=== PATIENT | female | born 1970 | race Caucasian/White ===

== ENCOUNTER 2017-08-13 21:59 | Emergency (ER) | payer SELFPAY ==
[~2017-08-13] VITALS: Ht 167.6 cm; Wt 122.5 kg
[2017-08-13] MEDS ORDERED: HYDR-79 PO (22:38)
--- NOTE | 2017-08-13 22:41 | ED.ADGEN ---
Adult General Chief Complaint Chief Complaint " I was walking out back.. and my sidewalk tamiko slopes.. and I turned. ... and my Rt. knee did not..." HPI HPI Patient is a 47 year old female who presents with Rt. knee injury with a twisting like activity. Patient localizes pain in patellar and medial collateral ligament area. There is some mild edema as compared to left knee, anterior posterior draw nourished indicate that cruciate ligaments appear to be stable. There is some crepitation on range of motion. There is exacerbation of pain with flexion of knee. Patient able to do straight leg lift. Patient was ambulatory at time exam with mild guarding. Distal neurovascular intact. No previous injury. She works as [email or web address]. Review of Systems Review of Systems Constitutional: Denies fever or chills [] Eyes: Denies change in visual acuity, redness, or eye pain [] HENT: Denies nasal congestion or sore throat [] Respiratory: Denies cough or shortness of breath [] Cardiovascular: No additional information not addressed in HPI [] GI: Denies abdominal pain, nausea, vomiting, bloody stools or diarrhea [] : Denies dysuria or hematuria [] Musculoskeletal: Complaints are right knee pain Integument: Denies rash or skin lesions [] Neurologic: Denies headache, focal weakness or sensory changes [] Endocrine: Denies polyuria or polydipsia [] All other systems were reviewed and found to be within normal limits, except as documented in this note. Family History Family History Noncontributory Current Medications Current Medications Current Medications Medications (Trade) Dose Ordered Sig/Akash Start Time Stop Time Status Last Admin Dose Admin Ibuprofen (Motrin) 800 mg 1X ONCE 08/13/17 23:15 08/13/17 23:16 DC 08/13/17 23:18 800 MG See nursing for home meds Allergies Allergies Allergies Coded Allergies Type Severity Reaction Last Updated Verified No Known Drug Allergies 08/13/17 No Physical Exam Physical Exam Constitutional: Moderately acute distress, non-toxic appearance. [] HENT: Normocephalic, atraumatic, bilateral external ears normal, oropharynx moist, no oral exudates, nose normal. [] Eyes: PERRLA, EOMI, conjunctiva normal, no discharge. [] Neck: Normal range of motion, no tenderness, supple, no stridor. [] Cardiovascular:Heart rate regular rhythm, no murmur [] Lungs & Thorax: Bilateral breath sounds clear to auscultation [] Abdomen: Bowel sounds normal, soft, no tenderness, no masses, no pulsatile masses. Obese Skin: Warm, dry, no erythema, no rash. [] Back: No tenderness, no CVA tenderness. [] Extremities: Right knee tenderness, no cyanosis, no clubbing, ROM intact, right knee edema. Right knee exam as per history of present illness Neurologic: Alert and oriented X 3, normal motor function, normal sensory function, no focal deficits noted. [] Psychologic: Affect normal, judgement normal, mood normal. [] Current Patient Data Vital Signs Vital Signs Date Time Temp Pulse Resp B/P (MAP) Pulse Ox O2 Delivery O2 Flow Rate FiO2 08/13/17 23:35 86 16 145/94 (111) 97 Room Air 08/13/17 22:25 97.8 EKG EKG [] Radiology/Procedures Radiology/Procedures My interpretation of x-ray films shows degenerative joint changes but no obvious fracture or dislocation.[] Course & Med Decision Making Course & Med Decision Making Pertinent Labs and Imaging studies reviewed. (See chart for details) Ice, elevation, rest, Bryce wrap, and follow-up with primary care and orthopedics. May require a arthroscopic evaluation. The pain ma be tx with [id number] Tylenol and ibuprofen. For severe pain may take Vicoprofen. [] Final Impression Final Impression 1. Rt Knee injury 2. Degenerative joint changes 3. Collateral ligament strain[] Problems: Dragon Disclaimer Dragon Disclaimer This electronic medical record was generated, in whole or in part, using a voice recognition dictation system. RAYNA NEWBY MD Aug 13, 2017 22:41
[2017-08-13] MEDS ORDERED: IBUPROFEN 800 MG TABLET. PO ONE (23:15)
[2017-08-13 23:35] VITALS: BP 145/94
--- NOTE | 2017-08-14 07:58 | RAD ---
Right knee, 3 views, 08/13/2017: History: Fall, pain There is moderate marginal spurring medially at the knee joint and at the patellofemoral articulation. No acute fracture is identified. Several small periarticular calcifications are noted. No large joint effusion is seen. IMPRESSION: 1. Moderate degenerative change. 2. No acute bony abnormality is detected.
== END 2017-08-13 23:45 | disposition home or self-care (01) ==
LOC: ER 21:59
DX: S86.812A Strain of other muscle(s) and tendon(s) at lower leg level, left leg, initial encounter (principal); M17.11 Unilateral primary osteoarthritis, right knee; X58.XXXA Exposure to other specified factors, initial encounter; Y93.89 Activity, other specified; Y99.8 Other external cause status; Y92.89 Other specified places as the place of occurrence of the external cause
CPT/HCPCS: 73564; 99284

== ENCOUNTER 2017-09-23 15:31 | Emergency (ER) | payer SELFPAY ==
[~2017-09-23] VITALS: Ht 167.6 cm; Wt 117.9 kg
[~2017-09-23 15:31] MED LIST: HYDR-79 PO
[2017-09-23] MEDS ORDERED: DICL100G18 TP (16:38)
--- NOTE | 2017-09-23 16:38 | PHYS DOC ---
Past History Past Medical History: CAD, Other Past Surgical History: Cholecystectomy, Other Alcohol Use: Occasionally Drug Use: None Adult General Chief Complaint Chief Complaint: LOWER EXTREMITY SWELLING HPI HPI Patient is a 47 year old F who presents with right sided knee pain that started approximately week ago. She states that she "stepped wrong" and heard a pop. She develops swelling and pain thereafter. She states that is difficult to bend her knee. Bending her knee worsens pain. She has no difficulty straightening her knee. Her pain is mostly in the front of the knee. She has no other associated symptoms. She has no other exacerbating or relieving factors. Review of Systems Review of Systems Constitutional: Denies fever or chills [] Eyes: Denies change in visual acuity, redness, or eye pain [] HENT: Denies nasal congestion or sore throat [] Respiratory: Denies cough or shortness of breath [] Cardiovascular: No additional information not addressed in HPI [] GI: Denies abdominal pain, nausea, vomiting, bloody stools or diarrhea [] : Denies dysuria or hematuria [] Musculoskeletal: Denies back pain Integument: Denies rash or skin lesions [] Neurologic: Denies headache, focal weakness or sensory changes [] Endocrine: Denies polyuria or polydipsia [] All other systems were reviewed and found to be within normal limits, except as documented in this note. Family History Family History No pertinent family medical history was reported Current Medications Current Medications Current medications were reviewed Allergies Allergies Allergies Coded Allergies Type Severity Reaction Last Updated Verified No Known Drug Allergies 08/13/17 No Physical Exam Physical Exam Constitutional: Well developed, well nourished, no acute distress, non-toxic appearance. [] HENT: Normocephalic, atraumatic Eyes: EOMI, conjunctiva normal, no discharge. [] Neck: Normal range of motion, no tenderness, supple, no stridor. [] Cardiovascular:Heart rate regular rhythm, Lungs & Thorax: Bilateral breath sounds clear to auscultation [] Abdomen: Bowel sounds normal, soft, no tenderness, no masses, no pulsatile masses. [] Skin: Warm, dry, no erythema, no rash. [] Extremities: No tenderness, no cyanosis, no clubbing, ROM intact. Moderate anterior swelling was noted on the right knee. Minimal reduction in range of motion with flexion at the knee. No erythema or ecchymosis noted. Neurologic: Alert and oriented X 3, normal motor function, normal sensory function, no focal deficits noted. [] Psychologic: Affect normal, judgement normal, mood normal. [] Current Patient Data Vital Signs Normal vital signs. Please review nursing documentation for specifics EKG EKG [] Radiology/Procedures Radiology/Procedures [] Course & Med Decision Making Course & Med Decision Making Pertinent Labs and Imaging studies reviewed. (See chart for details) Imaging including ultrasound was declined. It was explained that child will be to look for a DVT. If it DVT was present it was explained that she could develop a life-threatening or permanently disabling condition if it was not managed. She expressed understanding and declined DUE TO COST. Dragon Disclaimer Dragon Disclaimer This electronic medical record was generated, in whole or in part, using a voice recognition dictation system. Departure Departure: Impression: Primary Impression: Right knee sprain Disposition: HOME, SELF-CARE Condition: STABLE Referrals: PCP,NO (PCP) Patient Instructions: Knee Sprain Additional Instructions: Genet was seen in the emergency department for knee pain. No emergency medical condition was found on history or physical exam. Her symptoms are most consistent with a knee sprain. She was started on Voltaren gel and advised to keep her leg elevated. She was encouraged to continue daily activity as tolerated. She was also encouraged to follow-up with her primary care doctor in the next 3-5 days for further management. Genet was encouraged to return to the emergency room if she develops new or worsening symptoms. Scripts Diclofenac Sodium (VOLTAREN) 100 Gm Gel..gram. 1 GM TP QID, #100 GM 2 Refills Prov: LALITO DAVIS MD 09/23/17 Problem Qualifiers Primary Impression: Right knee sprain Encounter type: initial encounter Involved ligament of knee: unspecified ligament Qualified Codes: S83.91XA - Sprain of unspecified site of right knee , initial encounter LALITO DAVIS MD Sep 23, 2017 16:38
[2017-09-23 16:43] VITALS: BP 156/103
== END 2017-09-23 16:50 | disposition home or self-care (01) ==
LOC: ER 15:31
DX: S83.91XA Sprain of unspecified site of right knee, initial encounter (principal); I25.10 Atherosclerotic heart disease of native coronary artery without angina pectoris; X50.9XXA Other and unspecified overexertion or strenuous movements or postures, initial encounter; Y93.89 Activity, other specified; Y99.8 Other external cause status; Y92.89 Other specified places as the place of occurrence of the external cause
CPT/HCPCS: 99283

== ENCOUNTER 2019-01-19 07:26 | Emergency (ER) | payer SELFPAY ==
[~2019-01-19] VITALS: Ht 167.6 cm; Wt 127.0 kg
[~2019-01-19 07:26] MED LIST changes: +DICL100G18 TP; +HYDR-1179 PO; -HYDR-79 PO
[2019-01-19] MEDS ORDERED: IV NORMAL SALINE 1,000ML 1,000 ML IV ONE (08:00)
--- NOTE | 2019-01-19 08:02 | PHYS DOC ---
Past History Past Medical History: Hypertension, Kidney Stones Past Surgical History: Cholecystectomy, Other Alcohol Use: Occasionally Drug Use: None Adult General Chief Complaint Chief Complaint: FLANK PAIN HPI HPI 48-year-old female who presents with right-sided flank pain. She has been having intermittent discomfort on the side for several days. The pain got much worse overnight last night. The patient works nights. She was just walking when the pain became sharp and severe. The sharpness only lasted a few minutes, but was replaced with a moderate aching sensation that has not subsided. Patient has a history of kidney stones in the past. She has noticed some intermittent blood in her urine over the last few days. She denies fever or chills. She denies dysuria or urinary frequency. She has been nauseous, but no vomiting. No rash or skin changes. She denies trauma or falls. Review of Systems Review of Systems Constitutional: Denies fever or chills [] Eyes: Denies change in visual acuity, redness, or eye pain [] HENT: Denies nasal congestion or sore throat [] Respiratory: Denies cough or shortness of breath [] Cardiovascular: No additional information not addressed in HPI [] GI: Denies abdominal pain, nausea, vomiting, bloody stools or diarrhea [] : Hematuria. Denies dysuria. [] Musculoskeletal: Right flank pain[] Integument: Denies rash or skin lesions [] Neurologic: Denies headache, focal weakness or sensory changes [] Endocrine: Denies polyuria or polydipsia [] All other systems were reviewed and found to be within normal limits, except as documented in this note. Current Medications Current Medications Current Medications Medications (Trade) Dose Ordered Sig/Akash Start Time Stop Time Status Last Admin Dose Admin Sodium Chloride 1,000 ml @ 1,000 mls/hr 1X ONCE 01/19/19 08:00 01/19/19 08:59 Allergies Allergies Allergies Coded Allergies Type Severity Reaction Last Updated Verified No Known Drug Allergies 08/13/17 No Physical Exam Physical Exam Constitutional: Well developed, well nourished, no acute distress, non-toxic appearance, uncomfortable. [] HENT: Normocephalic, atraumatic, bilateral external ears normal, oropharynx moist, no oral exudates, nose normal. [] Eyes: PERRLA, EOMI, conjunctiva normal, no discharge. [] Neck: Normal range of motion, no tenderness, supple, no stridor. [] Cardiovascular:Heart rate regular rhythm, no murmur [] Lungs & Thorax: Bilateral breath sounds clear to auscultation [] Abdomen: Bowel sounds normal, soft, no tenderness, no masses, no pulsatile masses. [] Skin: Warm, dry, no erythema, no rash. [] Back: No tenderness. Right-sided CVA tenderness. [] Extremities: No tenderness, no cyanosis, no clubbing, ROM intact, no edema. [] Neurologic: Alert and oriented X 3, normal motor function, normal sensory function, no focal deficits noted. [] Psychologic: Affect normal, judgement normal, mood normal. [] Current Patient Data Vital Signs Vital Signs Date Time Temp Pulse Resp B/P (MAP) Pulse Ox O2 Delivery O2 Flow Rate FiO2 01/19/19 07:39 97.7 88 22 99 Room Air EKG EKG [] Radiology/Procedures Radiology/Procedures [] Impressions: PQRS Compliance Statement: One or more of the following individualized dose reduction techniques were utilized for this examination: 1. Automated exposure control 2. Adjustment of the mA and/or kV according to patient size 3. Use of iterative reconstruction technique CT abdomen/pelvis without contrast 01/19/2019 8:09 AM INDICATION: Right flank pain for one and half weeks. Recent history of kidney stones. COMPARISON: None available TECHNIQUE: Multiple axial CT images of the abdomen and pelvis were obtained without intravenous contrast. Coronal and sagittal reformats are provided. FINDINGS: Lungs are clear. Heart size is within normal limits. Evaluation of solid abdominal viscera is limited by lack of intravenous contrast. Liver, spleen, bilateral adrenal glands and pancreas are normal in appearance. Gallbladder surgically absent. Abdominal aorta is normal in course and caliber. No pathologically enlarged lymph nodes are identified in abdomen and pelvis. There is no free fluid or free intraperitoneal air. There is mild colonic diverticulosis. No adjacent inflammatory changes are identified. Moderate amount of stool is noted throughout the colon. There is a umbilical hernia measuring 1.8 cm containing nondilated loop of transverse colon. There is an additional supraumbilical ventral hernia containing fat measuring 2.7 cm. Few nonenlarged lymph nodes are identified in the right lower quadrant measuring up to 6 mm by short axis. Definite appendix is not visualized. No pericecal inflammatory changes are identified. 3 mm nonobstructing calculus is identified in the inferior pole the left kidney. 2 mm nonobstructing calculus is identified in the inferior pole left kidney. 5 mm nonobstructing calculus is identified in the interpolar right kidney. There is no hydronephrosis. No calculi are identified in the ureters or urinary bladder. Urinary bladder is within normal limits given degree of distention. Coarse calcification is identified along the midline adjacent to the urethra which is of indeterminate etiology. No suspicious osseous abnormality is identified. There is minimal retrolisthesis of L2 on L3, L3 on L4 and L4 on L5. Follicular changes are identified in the right adnexa. IMPRESSION: Nephrolithiasis without evidence for obstructive uropathy. Appendix is not visualized. No pericecal inflammatory changes are identified. Electronically signed by: Tio Reece MD (01/19/2019 8:37 AM) [id number] DICTATED AND SIGNED BY: TIO REECE MD DATE: 01/19/19 0837 CC: SHAWN CRANDALL DO; PCP,NO ~ Course & Med Decision Making Course & Med Decision Making Pertinent Labs and Imaging studies reviewed. (See chart for details) The patient's labs are unremarkable. Her urinalysis does show moderate blood, but no infection. CT scan is negative for shortness of kidney stone. She does have some stones in the kidneys, but nothing within the ureters or bladder. There is a calcification near the urethra that is of uncertain etiology. See official report for details. I suspect the patient has recently passed a stone. She is stable for discharge at this time. [] Dragon Disclaimer Dragon Disclaimer This electronic medical record was generated, in whole or in part, using a voice recognition dictation system. Departure Departure: Impression: Primary Impression: Kidney stone on left side Additional Impressions: Kidney stone on right side Hematuria Disposition: 01 HOME, SELF-CARE Condition: STABLE Referrals: PCP,NO (PCP) Patient Instructions: Hematuria, Adult, Kidney Stones, [id number] Problem Qualifiers Additional Impressions: Hematuria Hematuria type: unspecified type Qualified Codes: R31.9 - Hematuria, unspecified SHAWN CRANDALL DO Jan 19, 2019 08:02
[2019-01-19 08:26] LABS: BASO # 0.1 x10^3/uL (0.0-0.2); BASO % 1 % (0-3); EOS # 0.2 x10^3/uL (0.0-0.7); EOS % 3 % (0-3); HEMATOCRIT 41.9 % (36.0-47.0); HEMOGLOBIN 13.5 g/dL (12.0-15.5); LYMPH # 2.1 x10^3/uL (1.0-4.8); LYMPH % 30 % (24-48); MEAN CORPUSCULAR HEMOGLOBIN 29 pg (25-35); MEAN CORPUSCULAR HGB CONC 32 g/dL (31-37); MEAN CORPUSCULAR VOLUME 92 fL (79-100); MONO # 0.5 x10^3/uL (0.0-1.1); MONO % 8 % (0-9); NEUT % 58 % (31-73); PLATELET COUNT 256 x10^3/uL (140-400); RED BLOOD COUNT 4.58 x10^6/uL (3.50-5.40); WHITE BLOOD COUNT 6.9 x10^3/uL (4.0-11.0)
[2019-01-19] MEDS ORDERED: KETOROLAC 30 MG/ML VIAL. IV ONE (08:30)
[2019-01-19] MEDS ORDERED: ONDANSETRON PF 4 MG/2 ML VIAL. IV ONE (08:30)
[2019-01-19 08:32] LABS: ALBUMIN 3.8 g/dL (3.4-5.0); ALBUMIN/GLOBULIN RATIO 1.1 (1.0-1.7); CALCIUM 9.1 mg/dL (8.5-10.1); CREATININE 0.6 mg/dL (0.6-1.0); GFR 106.3; TOTAL BILIRUBIN 0.6 mg/dL (0.2-1.0)
[2019-01-19 08:34] LABS: BILIRUBIN,URINE NEG (NEG); CLARITY,URINE HAZY; COLOR,URINE STRAW; GLUCOSE,URINE NEG (NEG)
[2019-01-19 08:34] LABS: TOTAL PROTEIN 7.4 g/dL (6.4-8.2)
[2019-01-19 08:35] LABS: BACTERIA,URINE FEW /HPF (0-FEW); NITRITE,URINE NEG (NEG); SQUAMOUS EPITHELIAL CELL,UR OCC /LPF; UROBILINOGEN,URINE 0.2 mg/dL (0.2 mg/dL)
--- NOTE | 2019-01-19 08:40 | RAD ---
PQRS Compliance Statement: One or more of the following individualized dose reduction techniques were utilized for this examination: 1. Automated exposure control 2. Adjustment of the mA and/or kV according to patient size 3. Use of iterative reconstruction technique CT abdomen/pelvis without contrast 01/19/2019 8:09 AM INDICATION: Right flank pain for one and half weeks. Recent history of kidney stones. COMPARISON: None available TECHNIQUE: Multiple axial CT images of the abdomen and pelvis were obtained without intravenous contrast. Coronal and sagittal reformats are provided. FINDINGS: Lungs are clear. Heart size is within normal limits. Evaluation of solid abdominal viscera is limited by lack of intravenous contrast. Liver, spleen, bilateral adrenal glands and pancreas are normal in appearance. Gallbladder surgically absent. Abdominal aorta is normal in course and caliber. No pathologically enlarged lymph nodes are identified in abdomen and pelvis. There is no free fluid or free intraperitoneal air. There is mild colonic diverticulosis. No adjacent inflammatory changes are identified. Moderate amount of stool is noted throughout the colon. There is a umbilical hernia measuring 1.8 cm containing nondilated loop of transverse colon. There is an additional supraumbilical ventral hernia containing fat measuring 2.7 cm. Few nonenlarged lymph nodes are identified in the right lower quadrant measuring up to 6 mm by short axis. Definite appendix is not visualized. No pericecal inflammatory changes are identified. 3 mm nonobstructing calculus is identified in the inferior pole the left kidney. 2 mm nonobstructing calculus is identified in the inferior pole left kidney. 5 mm nonobstructing calculus is identified in the interpolar right kidney. There is no hydronephrosis. No calculi are identified in the ureters or urinary bladder. Urinary bladder is within normal limits given degree of distention. Coarse calcification is identified along the midline adjacent to the urethra which is of indeterminate etiology. No suspicious osseous abnormality is identified. There is minimal retrolisthesis of L2 on L3, L3 on L4 and L4 on L5. Follicular changes are identified in the right adnexa. IMPRESSION: Nephrolithiasis without evidence for obstructive uropathy. Appendix is not visualized. No pericecal inflammatory changes are identified. Electronically signed by: Nasrin Reece MD (01/19/2019 8:37 AM) [id number]
[2019-01-19] MEDS ORDERED: HYDR-3165 PO (09:18)
[2019-01-19] MEDS ORDERED: HYDROcodone/APAP 5/325MG 1 TAB TABLET PO ONE (09:40)
[2019-01-19 10:45] VITALS: BP 132/84
== END 2019-01-19 10:47 | disposition home or self-care (01) ==
LOC: ER 07:26
DX: N20.0 Calculus of kidney (principal); R31.9 Hematuria, unspecified; I10 Essential (primary) hypertension; Z87.442 Personal history of urinary calculi; Z90.49 Acquired absence of other specified parts of digestive tract
CPT/HCPCS: 36415; 74176; 80053; 81001; 85025; 87086; 96374; 96375; 99285; J1885; J2405; J7030

== ENCOUNTER 2020-07-16 12:43 | Emergency (ER) | payer SELFPAY ==
[~2020-07-16] VITALS: Ht 165.1 cm; Wt 133.0 kg
[~2020-07-16 12:43] MED LIST changes: +HYDR-3165 PO
--- NOTE | 2020-07-16 13:03 | EKG ---
[address] [address] Test Date: 2020-07-16 Test Time: 12:50:18 Pat Name: LISA ACKERMAN Department: Room: Gender: F Lighting Specialist: RAVINDRA : 1970 Requested By: ALINE GRIMES Order Number: [id number] Reading MD: Measurements Intervals [place] Rate: 76 P: 36 AL: 148 QRS: 33 QRSD: 94 T: 29 QT: 382 QTc: 429 Interpretive Statements SINUS RHYTHM R-S TRANSITION ZONE IN V LEADS DISPLACED TO THE LEFT LOW LIMB LEAD VOLTAGE NO SPECIFIC ECG ABNORMALITIES RI6.02 No previous ECG available for comparison
[2020-07-16] MEDS ORDERED: ASPIRIN CHEWABLE 81 MG TABLET. PO ONE (13:15)
--- NOTE | 2020-07-16 13:17 | PHYS DOC ---
Past History Past Medical History: Hypertension, Other Additional Past Medical Histor: SVT (ALINE GRIMES APRN) Past Surgical History: Cholecystectomy, Hysterectomy, Other Additional Past Surgical Histo: LITHROTRIPSY, HEART ABLATION, THRYOIDECTOMY (ALINE GRIMES APRN) Alcohol Use: Rarely Drug Use: None (ALINE GRIMES APRN) Adult General Chief Complaint Chief Complaint: CHEST PAIN HPI HPI Patient is a 50-year-old female who presents with chest tightness that is sharp, and comes and goes since . Patient states she was sitting at her desk working on her computer when the chest tightness started today. Patient also reports a headache "I was afraid my blood pressure was really high". Patient denies nausea, vomiting. Patient does report intermittent shortness of breath that she had Covid 3 months ago. Patient denies recent illness, cough, fever. Patient has history of hypertension, SVT. Patient denies pain at this time. (ALINE GRIMES APRN) Review of Systems Review of Systems Constitutional: Denies fever or chills [] Eyes: Denies change in visual acuity, redness, or eye pain [] HENT: Denies nasal congestion or sore throat [] Respiratory: Denies cough, reports intermittent shortness of breath since she was diagnosed with Covid 3 months ago Cardiovascular: Reports chest pressure GI: Denies abdominal pain, nausea, vomiting, bloody stools or diarrhea [] : Denies dysuria or hematuria [] Musculoskeletal: Denies back pain or joint pain [] Integument: Denies rash or skin lesions [] Neurologic: Denies headache, focal weakness or sensory changes [] Endocrine: Denies polyuria or polydipsia [] All other systems were reviewed and found to be within normal limits, except as documented in this note. (ALINE GRIMES APRN) Current Medications Current Medications Current Medications Medications (Trade) Dose Ordered Sig/Akash Start Time Stop Time Status Last Admin Dose Admin Aspirin (Aspirin Chewable) 162 mg 1X ONCE 07/16/20 13:15 07/16/20 13:16 (ALINE GRIMES APRN) Allergies Allergies Allergies Coded Allergies Type Severity Reaction Last Updated Verified No Known Drug Allergies 08/13/17 No (ALINE GRIMES APRN) Physical Exam Physical Exam Constitutional: Well developed, well nourished, no acute distress, non-toxic appearance. [] HENT: Normocephalic, atraumatic, bilateral external ears normal, oropharynx moist, no oral exudates, nose normal. [] Eyes: PERRLA, EOMI, conjunctiva normal, no discharge. [] Neck: Normal range of motion, no tenderness, supple, no stridor. [] Cardiovascular:Heart rate regular rhythm, no murmur [] Lungs & Thorax: Bilateral breath sounds clear to auscultation [] Abdomen: Bowel sounds normal, soft, no tenderness, no masses, no pulsatile masses. [] Skin: Warm, dry, no erythema, no rash. [] Back: No tenderness, no CVA tenderness. [] Extremities: No tenderness, no cyanosis, no clubbing, ROM intact, no edema. [] Neurologic: Alert and oriented X 3, normal motor function, normal sensory function, no focal deficits noted. [] Psychologic: Affect normal, judgement normal, mood normal. [] (ALINE GRIMES APRN) Current Patient Data Vital Signs Vital Signs Date Time Temp Pulse Resp B/P (MAP) Pulse Ox O2 Delivery O2 Flow Rate FiO2 07/16/20 12:53 97.0 79 18 160/93 (115) 96 Room Air (ALINE GRIMES APRN) EKG EKG Sinus Rhythm, HR 76 BPM[] (ALINE GRIMES APRN) Radiology/Procedures Radiology/Procedures []EXAM: CHEST 1 VIEW History: Chest pain COMPARISON: None available. TECHNIQUE: Single portable radiograph of the chest FINDINGS: The cardiac silhouette is unremarkable. The lungs are clear bilaterally. The costophrenic sulci are clear and well demarcated. IMPRESSION: No radiographic evidence of an acute cardiopulmonary process. Electronically signed by: Zoran Morris MD (07/16/2020 1:17 PM) [id number] (ALINE GRIMES APRN) Heart Score HEART Score for Chest Pain: HEART Score for Chest Pain Response (Comments) Value History Moderately Suspicious 1 ECG Normal 0 Age >45 - < 65 1 Risk Factors 1 or 2 Risk Factors 1 Troponin < Normal Limit 0 Total 3 Risk Factors: Risk Factors: DM, Current or recent (<one month) smoker, HTN, HLP, family history of CAD, obesity. Risk Scores: Risk Factors: DM, Current or recent (<one month) smoker, HTN, HLP, family history of CAD, obesity. (ALINE GRIMES APRN) Course & Med Decision Making Course & Med Decision Making Pertinent Labs and Imaging studies reviewed. (See chart for details) [] All labs within normal limits. Troponins negative. Heart score of 3. Patient has a history of hypertension, SVT, hypothyroid. Patient denies history of smoking. Patient was positive for Covid 3 months ago and since then has had intermittent shortness of breath, which she sees her primary care physician for. Chest x-ray was negative for any abnormalities. EKG normal sinus rhythm. Patient is hemodynamically stable and able to ambulate on her own upon discharge. She denies pain at this time. Will discharge patient to home. Patient agrees with this plan and will follow-up with primary care for further evaluation. (ALINE GRIMES APRN) Course & Med Decision Making I oversaw care of patient while in ER. I discussed case with TUNNEL ELASTIC OPERATOR CHAINSTITCH and agree to note, plan of care and dispo as stated (AYAKA PRADHAN DO) Dragon Disclaimer Dragon Disclaimer This electronic medical record was generated, in whole or in part, using a voice recognition dictation system. (ALINE GRIMES APRN) Departure Departure: Impression: Primary Impression: Chest pain Disposition: 01 DC HOME SELF CARE/HOMELESS Condition: STABLE Referrals: SHANT BLANCO JR, MD (PCP) Patient Instructions: Chest Pain (Nonspecific), [id number] Additional Instructions: He was seen in the emergency room today for chest pressure. All your labs came back within normal limits. Please follow-up with your primary care physician for further care. Please return to the emergency room with worsening symptoms or concerns. EMERGENCY DEPARTMENT GENERAL DISCHARGE INSTRUCTIONS Thank you for coming to [facility] (ED) today and trusting us with you care. We trust that you had a positivie experience in our Emergency Department. If you wish to speak to the department management, you may call the director at [phone]. YOUR FOLLOW UP INSTRUCTIONS ARE FOLLOWS: 1. Do you have a private Doctor? If you do not have a private doctor, please ask for a resource list of physicians or clinics that may be able to assist you with follow up care. 2. The Emergency Physician has interpreted your x-rays. The X-Ray specialist will also review them. If there is a change in the findings, you will be notified in 48 hours when at all possible. 3. A lab test or culture has been done, your results will be reviewed and you will be notified if you need a change in treatment. ADDITIONAL INSTRUCTIONS AND INFORMATION: 1. Your care today has been supervised by a physician who is specially trained in emergency care. Many problems require more than one evaluation for a complete diagnosis and treatment. We recommend that you schedule your follow up appointment as recommended to ensure complete treatment of you illness or injury. If you are unable to obtain follow up care and continue to have a problem, or if your condition worsens, we recommend that you return to the ED. 2. We are not able to safely determine your condition over the phone nor are we able to give sound medical advice over the phone. For these safety reasons, if you call for medical advice we will ask you to come to the ED for further evaluation. 3. If you have any questions regarding these discharge instructions please call the ED at [phone]. SAFETY INFORMATION: In the interest of safety, wellness, and injury prevention; we encourage you to wear your sealbelt, if you smoke; quite smoking, and we encourage family to use a protective helmet for bicycling and other sporting events that present an increased risk for head injury. IF YOUR SYMPTOMS WORSEN OR NEW SYMPTOMS DEVELOP, OR YOU HAVE CONCERNS ABOUT YOUR CONDITION; OR IF YOUR CONDITION WORSENS WHILE YOU ARE WAITING FOR YOUR FOLLOW UP APPOINTMENT; EITHER CONTACT YOUR PRIMARY CARE DOCTOR, THE PHYSICIAN WHOSE NAME AND NUMBER YOU WERE GIVEN, OR RETURN TO THE ED IMMEDIATELY. Problem Qualifiers Primary Impression: Chest pain Chest pain type: unspecified Qualified Codes: R07.9 - Chest pain, unspecified ALINE GRIMES APRN Jul 16, 2020 13:17 AYAKA PRADHAN DO Jul 17, 2020 15:09
[2020-07-16 13:46] LABS: ANION GAP 8 (6-14); BLOOD UREA NITROGEN 20 mg/dL (7-20); BUN/CREATININE RATIO 18 (6-20); CALCIUM 8.3 mg/dL (8.5-10.1); CARBON DIOXIDE 29 mmol/L (21-32); CHLORIDE 103 mmol/L (98-107); CREATININE 1.1 mg/dL (0.6-1.0); GFR 52.4; GLUCOSE 83 mg/dL (70-99); POTASSIUM 4.5 mmol/L (3.5-5.1); SODIUM 140 mmol/L (136-145)
[2020-07-16 13:49] LABS: BASO # 0.1 x10^3/uL (0.0-0.2); BASO % 1 % (0-3); EOS # 0.1 x10^3/uL (0.0-0.7); EOS % 2 % (0-3); HEMATOCRIT 42.6 % (36.0-47.0); HEMOGLOBIN 13.9 g/dL (12.0-15.5); LYMPH # 2.2 x10^3/uL (1.0-4.8); LYMPH % 35 % (24-48); MEAN CORPUSCULAR HEMOGLOBIN 29 pg (25-35); MEAN CORPUSCULAR HGB CONC 33 g/dL (31-37); MEAN CORPUSCULAR VOLUME 90 fL (79-100); MONO # 0.6 x10^3/uL (0.0-1.1); MONO % 10 % (0-9); NEUT # 3.2 x10^3uL (1.8-7.7); NEUT % 52 % (31-73); PLATELET COUNT 244 x10^3/uL (140-400); RED BLOOD COUNT 4.75 x10^6/uL (3.50-5.40); RED CELL DISTRIBUTION WIDTH 14.5 % (11.5-14.5); WHITE BLOOD COUNT 6.2 x10^3/uL (4.0-11.0)
[2020-07-16 14:01] LABS: ALBUMIN 3.6 g/dL (3.4-5.0); ALK PHOS 85 U/L (46-116); ALT (SGPT) 19 U/L (14-59); AST (SGOT) 16 U/L (15-37); TOTAL BILIRUBIN 0.4 mg/dL (0.2-1.0); TOTAL PROTEIN 7.3 g/dL (6.4-8.2)
[2020-07-16 14:10] LABS: CLARITY,URINE HAZY; COLOR,URINE YELLOW
[2020-07-16 14:11] LABS: BILIRUBIN,URINE NEG (NEG); GLUCOSE,URINE NEG (NEG); NITRITE,URINE NEG (NEG); RBC,URINE >40 /HPF (0-2); UROBILINOGEN,URINE 0.2 mg/dL (0.2 mg/dL)
[2020-07-16 14:12] LABS: BACTERIA,URINE MOD /HPF (0-FEW); SQUAMOUS EPITHELIAL CELL,UR MOD /LPF
[2020-07-16 14:16] VITALS: BP 128/78
== END 2020-07-16 14:27 | disposition home or self-care (01) ==
LOC: ER 12:43
DX: R07.89 Other chest pain (principal); R06.02 Shortness of breath; I10 Essential (primary) hypertension; Z90.49 Acquired absence of other specified parts of digestive tract; Z90.710 Acquired absence of both cervix and uterus; Z98.890 Other specified postprocedural states; Z90.89 Acquired absence of other organs
CPT/HCPCS: 36415; 71045; 80053; 81001; 82553; 83880; 84484; 85025; 85379; 87086; 93005; 99285

== ENCOUNTER 2021-07-04 21:39 | Emergency (ER) | payer OTHER ==
[~2021-07-04] VITALS: Ht 165.1 cm; Wt 144.3 kg
[2021-07-04 21:45] VITALS: BP 152/108
--- NOTE | 2021-07-04 21:55 | PHYS DOC ---
Past History Past Medical History: Hypertension, Other Additional Past Medical Histor: SVT Past Surgical History: Cholecystectomy, Hysterectomy, Other Additional Past Surgical Histo: LITHROTRIPSY, HEART ABLATION, THRYOIDECTOMY Alcohol Use: Rarely Drug Use: None Adult General HPI HPI Patient is a 51-year-old female with a history of renal stones presents with flank pain Review of Systems Review of Systems Constitutional: Denies fever or chills [] Eyes: Denies change in visual acuity, redness, or eye pain [] HENT: Denies nasal congestion or sore throat [] Respiratory: Denies cough or shortness of breath [] Cardiovascular: No additional information not addressed in HPI [] GI: Denies abdominal pain, nausea, vomiting, bloody stools or diarrhea [] : Denies dysuria or hematuria [] Musculoskeletal: Denies back pain or joint pain [] Integument: Denies rash or skin lesions [] Neurologic: Denies headache, focal weakness or sensory changes [] Endocrine: Denies polyuria or polydipsia [] All other systems were reviewed and found to be within normal limits, except as documented in this note. Allergies Allergies Allergies Coded Allergies Type Severity Reaction Last Updated Verified No Known Drug Allergies 08/13/17 No Physical Exam Physical Exam Constitutional: Well developed, well nourished, no acute distress, non-toxic appearance. [] HENT: Normocephalic, atraumatic, Eyes: conjunctiva normal, no discharge. [] Neck: Normal range of motion, no tenderness, supple, no stridor. [] Cardiovascular:Heart rate regular rhythm, no murmur [] Lungs & Thorax: Bilateral breath sounds clear to auscultation [] Abdomen: soft, no tenderness, no masses, no pulsatile masses. [] Skin: Warm, dry, no erythema, no rash. [] Back: No tenderness, no CVA tenderness. [] Extremities: No tenderness, no cyanosis, no clubbing, ROM intact, no edema. [] Neurologic: Alert and oriented X 3, no focal deficits noted. [] Psychologic: Affect normal, judgement normal, mood normal. [] EKG EKG [] Radiology/Procedures Radiology/Procedures [] Heart Score C/O Chest Pain: No Risk Factors: Risk Factors: DM, Current or recent (<one month) smoker, HTN, HLP, family history of CAD, obesity. Risk Scores: Risk Factors: DM, Current or recent (<one month) smoker, HTN, HLP, family history of CAD, obesity. Course & Med Decision Making Course & Med Decision Making Patient is a 51-year-old with a history of renal stones who presents with flank pain Vital signs notable for hypertension. Physical exam noted above. Given nausea medicine and pain medicine. Urinalysis not concerning. CT with no acute findings. There are 2 3 mm nonobstructing left renal calculi. Discussed all findings with patient. Advised on symptom control at home. Advised on diet. Advised to follow-up in 1 with primary care physician. Gave return precautions to the ED. Patient grateful, verbalized understanding and agreed with plan of discharge. Dragon Disclaimer Dragon Disclaimer This electronic medical record was generated, in whole or in part, using a voice recognition dictation system. Departure Departure: Impression: Primary Impression: Renal lithiasis Disposition: HOME / SELF CARE / HOMELESS Condition: GOOD Referrals: SHANT BLANCO JR, MD (PCP) Patient Instructions: Diet for Kidney Stones, Kidney Stones Additional Instructions: Thank you for coming into the emergency department tonight and allowing us to take care of you. Please read the attached information carefully. Please take your prescription medications as prescribed, taking 1 every 8 hours as needed for pain and 1 every 8 hours of your nausea medicine. Please follow-up with your primary care physician in the morning to update on ED visit. Please come back with new or concerning symptoms as we discussed. CAMDEN VOGEL MD Jul 04, 2021 21:55
--- NOTE | 2021-07-04 22:26 | RAD ---
PQRS Compliance Statement: One or more of the following individualized dose reduction techniques were utilized for this examinat ion: 1. Automated exposure control 2. Adjustment of the mA and/or kV according to patient size 3. Use of iterative reconstruction technique CT ABDOMEN+PELVIS WO Clinical Indication: Reason: flank pain, H/O stones / Spl. Instructions: / History: Comparison: None CT abdomen and pelvis without contrast January 19, 2019. Technique: Helical CT imaging of the abdomen and pelvis is performed without IV or oral contrast. Findings: Lung bases essentially clear. Cardiac size normal. Cholecystectomy. The liver, spleen, pancreas, adrenal glands, and abdominal aorta are normal. There is no right hydronephrosis. There are 2 about 3 mm in size nonobstructing left renal calculi. T here is no left hydronephrosis. There is no ureteral calculus. The stomach is unremarkable. There is diastasis of rectus abdominis muscles with protrusion of fat an d transverse colon. No small bowel obstruction is identified. There are scattered colon diverticula. No acute inflammation. No colon wall thickening is seen. The appendix is normal. No abdominal adenopa thy or free fluid. The urinary bladder is completely decompressed. There is a small bubble of air in the urinary bladder . Correlate to whether there has been recent catheterization. Probable hysterectomy. Ovaries are arsh lar in size. No pelvic free fluid. Mild grade 1 retrolisthesis of L2 on L3 and L3 on L4 and L4 and L5. IMPRESSION: 1. No acute abdominal or pelvic abnormality. No obstructive uropathy. 2. Nonobstructing left renal calculi. 3. Urinary bladder is completely decompressed and contains a small bubble of air. Correlate to [facility] there has been recent catheterization. Electronically signed by: Jared Bhatt MD (07/04/2021 10:23 PM) [facility]
[2021-07-04] MEDS ORDERED: ONDANSETRON ODT 4 MG TAB.RAPDIS PO ONE (22:45)
[2021-07-04 23:07] LABS: BILIRUBIN,URINE NEG (NEG); CLARITY,URINE CLEAR; COLOR,URINE YELLOW; GLUCOSE,URINE NEG (NEG); NITRITE,URINE NEG (NEG); UROBILINOGEN,URINE 0.2 mg/dL (0.2 mg/dL)
[2021-07-04 23:08] LABS: BACTERIA,URINE FEW /HPF (0-FEW); SQUAMOUS EPITHELIAL CELL,UR FEW /LPF
[2021-07-04] MEDS ORDERED: ACETAMINOPHEN/CODEINE 300/30MG 4TABLET STARTPACK. PO ONE (23:30)
[2021-07-04] MEDS ORDERED: ONDANSETRON 4MG ODT 4TABLET STARTPACK. PO ONE (23:30)
== END 2021-07-04 23:20 | disposition home or self-care (01) ==
LOC: ER 21:39
DX: N20.0 Calculus of kidney (principal); I10 Essential (primary) hypertension; Z87.442 Personal history of urinary calculi; Z90.49 Acquired absence of other specified parts of digestive tract; Z90.710 Acquired absence of both cervix and uterus
CPT/HCPCS: 74176; 81001; 87086; 99284; Q0162